=== PATIENT | male | born 1965 | race Caucasian/White ===

== ENCOUNTER → 2018-01-08 | Outpatient (CLI) | payer MEDICARE | END | disposition home or self-care (01) | LOC: MRI 14:38 | DX: M54.40 Lumbago with sciatica, unspecified side (principal); M48.061 Spinal stenosis, lumbar region without neurogenic claudication; M51.36 Other intervertebral disc degeneration, lumbar region; M25.78 Osteophyte, vertebrae | CPT/HCPCS: 72148 ==

== ENCOUNTER → 2018-04-20 | Outpatient (CLI) | payer MEDICARE ==
[~2018-04-20] MED LIST: IOHEXOL 180 MG/ML 10 ML VIAL.; LIDOCAINE 1% PF 2 ML VIAL.; methylPREDNISolone ACETATE 40 MG/ML VIAL.; methylPREDNISolone ACETATE 80 MG/ML VIAL.
== END | disposition home or self-care (01) ==
LOC: PNCL 12:58
DX: M51.16 Intervertebral disc disorders with radiculopathy, lumbar region (principal); M48.062 Spinal stenosis, lumbar region with neurogenic claudication; I10 Essential (primary) hypertension; Z86.14 Personal history of Methicillin resistant Staphylococcus aureus infection; A69.20 Lyme disease, unspecified; M19.90 Unspecified osteoarthritis, unspecified site; F17.210 Nicotine dependence, cigarettes, uncomplicated; Z96.641 Presence of right artificial hip joint; Z98.890 Other specified postprocedural states; Z79.899 Other long term (current) drug therapy; Z82.49 Family history of ischemic heart disease and other diseases of the circulatory system; Z72.89 Other problems related to lifestyle
CPT/HCPCS: 62323; J1030; J1040; Q9965

== ENCOUNTER → 2018-05-04 | Outpatient (CLI) | payer MEDICARE | END | disposition home or self-care (01) | LOC: PNCL 12:55 | DX: M51.16 Intervertebral disc disorders with radiculopathy, lumbar region (principal); M48.062 Spinal stenosis, lumbar region with neurogenic claudication; I10 Essential (primary) hypertension; M19.90 Unspecified osteoarthritis, unspecified site; F17.210 Nicotine dependence, cigarettes, uncomplicated; Z79.899 Other long term (current) drug therapy; Z79.2 Long term (current) use of antibiotics; Z86.14 Personal history of Methicillin resistant Staphylococcus aureus infection; Z96.641 Presence of right artificial hip joint; Z98.890 Other specified postprocedural states; Z82.49 Family history of ischemic heart disease and other diseases of the circulatory system | CPT/HCPCS: 62323; J1030; J1040; Q9965 ==

== ENCOUNTER → 2018-05-18 | Outpatient (CLI) | payer MEDICARE | END | disposition home or self-care (01) | LOC: PNCL 12:49 | DX: M51.16 Intervertebral disc disorders with radiculopathy, lumbar region (principal); M48.062 Spinal stenosis, lumbar region with neurogenic claudication | CPT/HCPCS: 62323; J1030; J1040; Q9965 ==

== ENCOUNTER → 2018-07-19 | Outpatient (CLI) | payer MEDICARE ==
[2016-07-28 21:05] VITALS: BP 161/98
[~2018-07-19] MED LIST changes: +ALPR0.5T6 PO; +AMLO5TAB7 PO; +CEPH-264 PO; +CHOL100013 PO; +GENTAMYCIN NAS; +HYDR-2762 PO; +HYDR-971 PO; -IOHEXOL 180 MG/ML 10 ML VIAL.; -LIDOCAINE 1% PF 2 ML VIAL.; +MELO15TA23 PO; +METO-239 PO; +TIZA4TAB PO; +VALA1000 PO; +[UNRECOGNIZED DRUG - OTHER] NAS; -methylPREDNISolone ACETATE 40 MG/ML VIAL.; -methylPREDNISolone ACETATE 80 MG/ML VIAL.
[2018-07-19 16:14] LABS: BASO % 1 % (0-3); EOS # 0.1 x10^3/uL (0.0-0.7); EOS % 1 % (0-3); HEMATOCRIT 47.6 % (39.0-53.0); HEMOGLOBIN 16.4 g/dL (13.0-17.5); LYMPH # 1.6 x10^3/uL (1.0-4.8); LYMPH % 18 % (24-48); MEAN CORPUSCULAR HEMOGLOBIN 30 pg (25-35); MEAN CORPUSCULAR HGB CONC 34 g/dL (31-37); MEAN CORPUSCULAR VOLUME 88 fL (79-100); MONO # 0.8 x10^3/uL (0.0-1.1); MONO % 9 % (0-9); NEUT # 6.4 x10^3uL (1.8-7.7); NEUT % 72 % (31-73); PLATELET COUNT 267 x10^3/uL (140-400); RED CELL DISTRIBUTION WIDTH 15.4 % (11.5-14.5); WHITE BLOOD COUNT 8.9 x10^3/uL (4.0-11.0)
--- NOTE | 2018-07-19 16:16 | EKG ---
[facility] [address] [place] [address] Test Date: 2018-07-19 Test Time: 16:08:42 Pat Name: BRADEN OBANDO Department: Room: Gender: M Pbx Technician: : 1965 Requested By: PRATIK WHEELER Order Number: [id number] Reading MD: Everton Vaughn Measurements Intervals [place] Rate: 91 P: 31 DE: 158 QRS: 19 QRSD: 96 T: 26 QT: 344 QTc: 425 Interpretive Statements SINUS RHYTHM INCOMPLETE RIGHT BUNDLE BRANCH BLOCK Electronically Signed On 07-20-2018 16:28:27 CDT by Everton Vaughn
[2018-07-19 16:36] LABS: ALBUMIN 3.6 g/dL (3.4-5.0); CALCIUM 9.3 mg/dL (8.5-10.1); CREATININE 1.3 mg/dL (0.7-1.3); POTASSIUM 4.6 mmol/L (3.5-5.1); TOTAL BILIRUBIN 0.7 mg/dL (0.2-1.0); TOTAL PROTEIN 7.2 g/dL (6.4-8.2)
== END | disposition home or self-care (01) ==
LOC: SURGPAT 13:41
PROVIDERS: ATTEND Neurological Surgery
DX: Z01.818 Encounter for other preprocedural examination (principal); I10 Essential (primary) hypertension; I45.19 Other right bundle-branch block; Z79.2 Long term (current) use of antibiotics; Z96.641 Presence of right artificial hip joint; Z86.14 Personal history of Methicillin resistant Staphylococcus aureus infection; Z82.49 Family history of ischemic heart disease and other diseases of the circulatory system
CPT/HCPCS: 36415; 80053; 85025; 87641; 93005

== ENCOUNTER → 2018-07-29 | Day surgery (SDC) | payer MEDICARE ==
--- NOTE | 2018-07-28 18:21 | PREOP HP ---
DATE OF SERVICE: 07/29/2018 HISTORY OF PRESENT ILLNESS: The patient is a pleasant 53-year-old who I last saw in 02/2018. He is having difficulty with low back pain and right posterior thigh and leg pain. He also notices some right anterior thigh numbness. He feels as though there is weakness in his right leg that has been present for years. Over the last year, his lower back and right leg symptoms have worsened considerably. He rates his pain as an 8/10. Walking any distance is associated with significant pain. Taking a bath can be helpful for him. He has been using ibuprofen. He went through physical therapy without significant benefit. I saw him last and recommended epidural steroid injections. He did have 3, which he said were not lasting any benefit. PAST MEDICAL HISTORY: Arthritis, hypertension, MRSA, trauma and Lyme disease. PAST SURGICAL HISTORY: Shoulder surgery in 2013 femur repair in 1999. FAMILY HISTORY: Cancer, seizures and hypertension. SOCIAL HISTORY: Retired. . Smokes less than a half a pack per day and has for 20 years. Drinks alcohol 1-2 times per year. ALLERGIES: No known drug allergies. CURRENT MEDICATIONS: Ibuprofen, metoprolol, meloxicam, alprazolam. REVIEW OF SYSTEMS: A 12-point review of systems was obtained and is noncontributory except for that mentioned above. PHYSICAL EXAMINATION: NEUROSURGERY EXAMINATION: GENERAL APPEARANCE: Alert, pleasant, no acute distress. HEAD: Normocephalic and atraumatic. SKIN: Warm and dry. MUSCULOSKELETAL: Lumbar paraspinal muscle bulk is normal, restricted range of motion of lumbar spine, uury-[id number] tenderness of lower lumbar spine with palpation, normal range of motion of the lower extremities bilaterally. EXTREMITIES: No clubbing, cyanosis or edema. NEUROLOGIC: Alert and oriented x 3, normal recent and remote memory, strength 5/5 in bilateral lower extremities, sensory was intact to light touch in the lower extremities bilaterally, reflexes were trace and symmetric in bilateral lower extremities, negative straight leg raising bilaterally, normal gait. IMAGING: Reviewed. I reviewed a lumbar MRI scan from 01/2018. On that study, there is moderate spinal stenosis present at L3-L4 with moderately severe lateral recess and neural foraminal compromise. At L4-L5, there is moderate degenerative facet disease with lateral recess narrowing, which is more significant on the right side than on the left. ASSESSMENT: 1. Spinal stenosis, lumbar region with neurogenic claudication. 2. Radiculopathy, lumbar region. The patient has difficulty with lumbar stenosis at L3-L4 and right-sided lateral recess narrowing at L4-L5. My recommendation is that he undergo a right direct laminectomy at L3-L4 along with a right-sided hemilaminotomy and microdecompression L4-L5. I discussed this with him in detail including the technique, risks, and expected postoperative course. He understands. He would like to go ahead. We will make the arrangements. PRATIK WHEELER MD DR: VANIA/chito JOB#: [id number] / [id number]
[~2018-07-29] VITALS: Ht 175.3 cm; Wt 77.6 kg
[~2018-07-29] MED LIST changes: +BACITRACIN 50,000 UNIT in IV NORMAL SALINE 1000ML BAG 1,000 ML IRR ONE; +BUPIVAC MPF-EPI 0.5%-1:200000 30 ML VIAL. INJ ONE; +DESFLURANE > 120 MINUTES IH ONE; +DOCU-109 PO; +GELATIN SPONGE SIZE 100. ONE; +GLYCOPYRROLATE 1 MG/5 ML VIAL. ONE; +HYDROcodone/APAP 7.5/325MG 1 TAB TABLET PO PRN; +HYDROmorphone 2 MG/ML VIAL IV PRN; +IV RINGERS,LACTATED 1000ML 1,000 ML IV SCH; +KETAMINE HCL 50 MG/5 ML SYRINGE ONE; +KETOROLAC 60 MG/2 ML INJ FOR OR. ONE; +LIDOCAINE 1% PF 2 ML VIAL. ID PRN; +METH-38 PO; +MIDAZOLAM HCL/PF 2 MG/2 ML VIAL. ONE; +MORPHINE SULFATE 2 MG/ML VIAL. IV PRN; +NEOSTIGMINE METHYLSULFATE 5 MG/5 ML SYRINGE. ONE; +ONDANSETRON PF 4 MG/2 ML VIAL. IV PRN; +ONDANSETRON PF 4 MG/2 ML VIAL. ONE; +PHENYLEPHRINE 10 MG/ML VIAL. ONE; +PROCHLORPERAZINE 10 MG/2 ML VIAL. IV PRN; +PROPOFOL 20 ML IV ONE; +PROPOFOL 50 ML IV ONE; +REMIFENTANIL 2 MG VIAL. IV ONE; +ROCURONIUM 50 MG/5 ML VIAL. ONE; +THROMBIN TOPICAL 20,000 UNIT SPRAY.SYRN KIT TP ONE; +fentaNYL PF VIAL 100 MCG/2 ML VIAL IV PRN; +fentaNYL PF VIAL 100 MCG/2 ML VIAL ONE
--- NOTE | 2018-07-29 14:23 | DISCH ---
DISCHARGE INSTRUCTIONS Condition on Discharge Condition on Discharge: Stable Activity After Discharge Activity Instructions for Disc: Activity as tolerated, Avoid exertion Other activity instructions: no driving for a week Bathing Instructions: Shower-keep dressing dry Lifting Instructions after Dis: No heavy lifting, No pulling or pushing, Do not lift >10 pounds Diet after Discharge Additional Diet Restrictions: resume home diet Wound Incision Care Wound/Incision Care: Ice to area for comfort Other wound/incision instructi: may remove dressing in 48 hrs if dry then may shower, no soaking Contacting the after DC Call your doctor for: Concerns you may have Follow-Up Follow up with: Dr. Wheeler's nurse in 2 weeks [phone] PRATIK WHEELER MD Jul 29, 2018 14:23
[2018-07-29 15:45] VITALS: BP 118/85
--- NOTE | 2018-07-29 17:17 | OP ---
DATE OF SURGERY: 07/29/2018 PREOPERATIVE DIAGNOSES: 1. Lumbar spinal stenosis, L3-L4. 2. Lateral recess stenosis L4-L5, right. OPERATION PERFORMED: 1. Right direct laminectomy L3-L4. 2. Hemilaminotomy with microdecompression of dura and nerve root, right L4-L5. The operation was done with EMG monitoring, fluoroscopy, microscopic dissection. SURGEON: Tunde Wheeler M.D. EXIT BOOTH AGENT: Ginette Whitlock, assisted with the surgery. She assisted with the exposure, the 2-level microdecompression as well as closure. OPERATIVE INDICATIONS: The patient is a very pleasant 53-year-old man who developed intractable back and predominantly right leg pain. Epidural steroids had been done recently, which were of no significant benefit and he had above-mentioned findings on imaging studies. I recommended lumbar microsurgery. I spoke about the surgery and the risks. He understood and wished to go ahead. DESCRIPTION OF PROCEDURE: Following general endotracheal anesthesia, the patient was positioned prone on the Erasto table. His lumbar region was prepped and draped in standard fashion. RICH hose and AV impulse boots were applied for DVT prophylaxis. The microscope was draped. Fluoroscopy was draped and brought in the field. Monitoring was established. Ancef 2 grams was given less than 1 hour prior to initiation of the surgery. Using fluoroscopic guidance, an incision was made directly over the midline extending from L3-L5. I dissected down subcutaneous tissue, reflected the paraspinal muscles, placed a [place] micro disc retractor, brought in the microscope and using microscopic technique from this point forward, I burred down a generous hemilaminotomy at L3-L4. I tilted the patient away from me and I drilled across the midline with a high-speed air drill and trimmed away the very thickened from the midline and then worked this laterally and then performed a very generous partial foraminotomy. I also worked superiorly and fully removed the ligamentum flavum at L3-L4 from the midline to the right side and decompressed both the L4 and to a lesser extent the L3 root. I did explore carefully the neural foramen, which was opened at this point following my decompression. The foraminotomy was extensive and I could visualize the L4 root, which was not under any pressure following the decompression. I then moved down to L4-L5 in a similar fashion, drilled a generous hemilaminotomy, trimmed away thickened ligamentum flavum. At this level, there was a thickened ligament directly over the L4 root and compressing it down on hard disc bulging and I trimmed away the ligament and performed a generous partial foraminotomy and fully decompressed the root. Working more medially, I assured myself that the region was very well decompressed. I trimmed some of the hard disc material away as well to fully decompress the region. Following this, I irrigated copiously. I did use small amounts of bone wax as well as bipolar cautery for hemostasis. I had an excellent decompression of both L3-L4 and L4-L5. I irrigated copiously. I removed the retractor and obtained hemostasis in the muscle and then, I closed the wound in layers with absorbable suture and the skin was closed with 4-0 subcuticular stitch. The operation went very well and the patient was taken uneventfully to recovery room in excellent condition. I was quite pleased with the surgery. TUNDE WHEELER MD DR: VANIA/chito JOB#: [id number] / [id number] ADRI
--- NOTE | 2018-08-02 15:09 | PATHOLOGY ---
[facility] Accession Number: [id number] . 01 Material submitted: . LUMBAR DECOMPRESSION . 01 Clinician provided ICD-10: M48.062 . 01 Clinical history: . Lumbar stenosis with neurogenic claudication . 02 Diagnosis: Segments of fibrocartilaginous, fibroadipose, and skeletal muscle tissue and bone, lumbar decompression: - Degenerative changes of fibrocartilaginous tissue. . (JPM:mm; 08/02/18) [facility]/08/02/2018 . 02 Comment: There is no evidence of an acute inflammatory process or malignancy. . (JPM:mml; 08/02/18) . 02 Electronically signed: . Ruddy Fam MD, Pathologist NPI- [id number] . 01 Gross description: . Received in formalin labeled "Gio Macario, lumbar decompression" and consists of several ragged, firm, kennedy-white fragments of probable fibrocartilaginous tissue admixed with irregularly-shaped osseous tissue fragments (2.5 x 2.0 x 0.9 cm in aggregate). Orchid Hand sections are submitted as A1 following decalcification. (KELL; 07/30/2018) JBR/JBR . 02 Pathologist provided ICD-10: M51.36 . 02 CPT . 354275, [id number] Specimen Comment: A courtesy copy of this report has been sent to Specimen Comment: [phone], . Specimen Comment: Report sent to and Performed at: [address] [facility], [place], [place] [id number] MD Rikki Mazariegos MD Phone: [phone] Performed at: 02 [facility] [address] [place], [place] [id number] MD Ruddy Fam MD Phone: [phone]
== END | disposition home or self-care (01) ==
LOC: SURG 08:38
PROVIDERS: ATTEND Neurological Surgery
DX: M48.062 Spinal stenosis, lumbar region with neurogenic claudication (principal); M51.16 Intervertebral disc disorders with radiculopathy, lumbar region; I10 Essential (primary) hypertension; M19.90 Unspecified osteoarthritis, unspecified site; Z86.14 Personal history of Methicillin resistant Staphylococcus aureus infection; A69.20 Lyme disease, unspecified; Z98.890 Other specified postprocedural states; Z82.49 Family history of ischemic heart disease and other diseases of the circulatory system; Z82.0 Family history of epilepsy and other diseases of the nervous system; F17.210 Nicotine dependence, cigarettes, uncomplicated; Z72.89 Other problems related to lifestyle; Z79.899 Other long term (current) drug therapy
CPT/HCPCS: 63030; 63035; 88304; 88311; 97161; A7015; G8978; G8979; G8980; J0690; J1885; J2250; J2405; J2704; J2710; J3010; J3490; J7030; 76000

== ENCOUNTER 2018-09-30 12:07 | Emergency (ER) | payer MEDICARE ==
[~2018-09-30] VITALS: Ht 175.3 cm; Wt 74.8 kg
[~2018-09-30 12:07] MED LIST changes: -BACITRACIN 50,000 UNIT in IV NORMAL SALINE 1000ML BAG 1,000 ML IRR ONE; -BUPIVAC MPF-EPI 0.5%-1:200000 30 ML VIAL. INJ ONE; -DESFLURANE > 120 MINUTES IH ONE; -GELATIN SPONGE SIZE 100. ONE; -GLYCOPYRROLATE 1 MG/5 ML VIAL. ONE; -HYDR-2762 PO; +HYDR-2765 PO; +HYDR-3164 PO; -HYDR-971 PO; -HYDROcodone/APAP 7.5/325MG 1 TAB TABLET PO PRN; -HYDROmorphone 2 MG/ML VIAL IV PRN; -IV RINGERS,LACTATED 1000ML 1,000 ML IV SCH; -KETAMINE HCL 50 MG/5 ML SYRINGE ONE; -KETOROLAC 60 MG/2 ML INJ FOR OR. ONE; -LIDOCAINE 1% PF 2 ML VIAL. ID PRN; -MIDAZOLAM HCL/PF 2 MG/2 ML VIAL. ONE; -MORPHINE SULFATE 2 MG/ML VIAL. IV PRN; -NEOSTIGMINE METHYLSULFATE 5 MG/5 ML SYRINGE. ONE; -ONDANSETRON PF 4 MG/2 ML VIAL. IV PRN; -ONDANSETRON PF 4 MG/2 ML VIAL. ONE; -PHENYLEPHRINE 10 MG/ML VIAL. ONE; -PROCHLORPERAZINE 10 MG/2 ML VIAL. IV PRN; -PROPOFOL 20 ML IV ONE; -PROPOFOL 50 ML IV ONE; -REMIFENTANIL 2 MG VIAL. IV ONE; -ROCURONIUM 50 MG/5 ML VIAL. ONE; -THROMBIN TOPICAL 20,000 UNIT SPRAY.SYRN KIT TP ONE; -fentaNYL PF VIAL 100 MCG/2 ML VIAL IV PRN; -fentaNYL PF VIAL 100 MCG/2 ML VIAL ONE
[2018-09-30 12:16] VITALS: BP 188/120
[2018-09-30] MEDS ORDERED: OXYC1TAB15 PO (12:22)
[2018-09-30] MEDS ORDERED: SILV20CR14 TP (12:22)
--- NOTE | 2018-09-30 12:23 | PHYS DOC ---
Past Medical History Past Medical History: Depression Additional Past Medical Histor: Lyme disease Past Surgical History: Hip Replacement, Other Additional Past Surgical Histo: R leg, L shoulder, Back Smoking: Cigarettes Alcohol Use: Occasionally Drug Use: None Adult General Chief Complaint Chief Complaint: BURN/SMOKE INHALATION HPI HPI Patient is a 53-year-old male who presents to the emergency department for evaluation. He was wearing a mesh top shoe, and went to take the turkey out of the oven, when the aluminum harper began to bend, causing some of the gravy to schedule out of the harper, and landed on the dorsal aspect of his right foot. The patient presents with mostly first-degree perez over the dorsal aspect of his distal right foot, with some areas of second-degree perez, partial thickness, on the dorsal aspect of the second and fifth toe. He did immerse his foot in cold water after this happened. This happened about 45 minutes prior to arrival. He is uncertain of his last tetanus. He did just complete a course of hydrocodone for back surgery, but has been out for a few weeks. Palpation of the affected area seems to worsen his pain. There are no alleviating factors to his symptoms. Review of Systems Review of Systems Constitutional: Denies fever or chills [] Eyes: Denies change in visual acuity, redness, or eye pain [] HENT: Denies nasal congestion or sore throat [] Musculoskeletal: Denies back pain or joint pain [] Integument: Denies rash or skin lesions [] Neurologic: Denies headache, focal weakness or sensory changes [] Allergies Allergies Allergies Coded Allergies Type Severity Reaction Last Updated Verified No Known Drug Allergies 07/29/18 No Physical Exam Physical Exam PHYSICAL EXAM: HEENT: Atruamatic NECK: Supple, normal ROM, non-tender. CARDIAC: Regular Rate and Rhythm LUNGS: Clear Bilaterally EXTREMITIES: On the dorsal aspect of the right foot, there is an area of first degree burn over the distal half of the dorsum of the foot. A strong dorsalis pedis pulses present. There are isolated areas of second-degree burn, partial- thickness, each about a clair in size, on the dorsal aspect of the second and fifth toes. There are no other perez noted. The ankle and remainder of the right and lower extremity are nontender. Total BSA involvement is less than 1%. EKG EKG [] Radiology/Procedures Radiology/Procedures [] Course & Med Decision Making Course & Med Decision Making I discussed home care with the patient, pain control, need for PCP follow-up, and return precautions. Dragon Disclaimer Dragon Disclaimer This electronic medical record was generated, in whole or in part, using a voice recognition dictation system. Departure Departure Impression: Primary Impression: Burn Disposition: HOME, SELF-CARE Condition: STABLE Referrals: MELVIN SLATER MD (PCP) Patient Instructions: Burn Care Scripts Oxycodone/Apap 5-325 (PERCOCET 5-325 MG TABLET) 1 Each Tablet 1 TAB PO Q6HRS PRN for PAIN, #20 TAB Prov: ESTEBAN TURNER MD 09/30/18 Silver Sulfadiazine (SILVADENE) 20 Gm Cream..g. 1 RADHA TP TID, #50 GM Prov: ESTEBAN TURNER MD 09/30/18 ESTEBAN TURNER MD Sep 30, 2018 12:23
[2018-09-30] MEDS ORDERED: DIPHTH,PERTUSS(ACELL),TET TOX 0.5 ML DISP.SYRIN. VAX IM ONE (12:30)
[2018-09-30] MEDS ORDERED: silver sulfADIAZINE 1% CREAM 25GM TUBE. TP ONE (12:30)
[2018-09-30] MEDS ORDERED: oxyCODONE/APAP 5/325 1 TAB TABLET PO ONE (12:30)
== END 2018-09-30 12:44 | disposition home or self-care (01) ==
LOC: ER 12:07
DX: T25.231A Burn of second degree of right toe(s) (nail), initial encounter (principal); T25.121A Burn of first degree of right foot, initial encounter; F17.210 Nicotine dependence, cigarettes, uncomplicated; X12.XXXA Contact with other hot fluids, initial encounter; Y93.G9 Activity, other involving cooking and grilling; Y92.89 Other specified places as the place of occurrence of the external cause; Y99.8 Other external cause status
CPT/HCPCS: 90471; 90715; 99283-25

== ENCOUNTER 2020-01-13 22:55 | Emergency (ER) | payer MEDICARE ==
[~2020-01-13] VITALS: Ht 172.7 cm; Wt 75.0 kg
[~2020-01-13 22:55] MED LIST changes: +AMLO5TAB10 PO; -AMLO5TAB7 PO; +OXYC1TAB15 PO; +SILV20CR14 TP; -TIZA4TAB PO; +TIZA4TAB2 PO; -VALA1000 PO; +VALA10008 PO
[2020-01-13 23:15] VITALS: BP 170/79
[2020-01-13] MEDS ORDERED: LIDOCAINE 1%/EPI 1:100,000 20 ML VIAL. SQ ONE (23:30)
[2020-01-14] MEDS ORDERED: HYDROcodone/APAP 7.5/325MG 1 TAB TABLET PO ONE
[2020-01-14] MEDS ORDERED: SULF1TAB24 PO (00:02)
[2020-01-14] MEDS ORDERED: HYDR-2761 PO (00:02)
[2020-01-14] MEDS ORDERED: CEPH500C PO (00:02)
--- NOTE | 2020-01-14 00:02 | PHYS DOC ---
Past Medical History Past Medical History: Depression, Hypertension Additional Past Medical Histor: Lyme disease Past Surgical History: Hip Replacement, Other Additional Past Surgical Histo: R leg, L shoulder, Back Smoking Status: Current Every Day Smoker Alcohol Use: Occasionally Drug Use: Marijuana Adult General Chief Complaint Chief Complaint: SKIN PROBLEM HPI HPI Patient is a 54 year old male, accompanied by his roommate, who presents to the emergency department with complaints of a swollen, red, warm, tender area to his left anterior thigh that began 3 days ago. Patient states when he first noticed the area he pulled an ingrown hair out of it. He denies any numbness, tingling, or weakness of the affected extremity. He denies any fever, bleeding, or drainage from the site. He currently rates the pain an 8 out of 10 on the pain scale, the pain increases of pressure is applied to the area, he denies any alleviating factors. Patient states that his last tetanus shot was 4 years ago. Review of Systems Review of Systems Complete ROS is negative unless otherwise noted in HPI. Current Medications Current Medications Current Medications Medications (Trade) Dose Ordered Sig/Lazaro Start Time Stop Time Status Last Admin Dose Admin Lidocaine/ Epinephrine (LIDOCAINE 1%-EPI 1:100,000 Multi-Dose) 20 ml 1X ONCE 01/13/20 23:30 01/13/20 23:31 DC 01/13/20 23:29 20 ML Allergies Allergies Allergies Coded Allergies Type Severity Reaction Last Updated Verified No Known Drug Allergies 07/29/18 No Physical Exam Physical Exam See Above Constitutional: Well developed, well nourished, no acute distress, non-toxic appearance. [] HENT: Normocephalic, atraumatic, bilateral external ears normal, nose normal. [] Eyes: PERRLA, EOMI, conjunctiva normal, no discharge. [] Neck: Normal range of motion, no stridor. [] Cardiovascular:Heart rate regular rhythm Lungs & Thorax: Respirations even and unlabored, no retractions, no respiratory distress Skin: Warm, dry; large 10 cm diameter area of erythema noted to anterior left thigh with 3 cm central raised, fluctuant area, no active bleeding or drainage, concerning for skin abscess with surrounding cellulitis. [] Extremities: No cyanosis, no clubbing, ROM intact, no edema. [] Neurologic: Alert and oriented X 3, no focal deficits noted. [] Psychologic: Affect normal, judgement normal, mood normal. [] Current Patient Data Vital Signs Vital Signs Date Time Temp Pulse Resp B/P (MAP) Pulse Ox O2 Delivery O2 Flow Rate FiO2 01/13/20 23:15 98.4 90 20 170/79 (109) 96 Room Air 98.4 EKG EKG [] Radiology/Procedures Radiology/Procedures Indication: abscess Procedure: The patient was positioned appropriately. Local anesthesia was 1% lidocaine with epi. An incision was then made over the apex of the lesion and moderate amount of purulent drainage was expressed. The drainage cavity was explored with Kellys and packed with sterile iodoform gauze. A marker was used to draw an outline around the area of erythema for the patient. The patients tetanus status was up-to-date. The patient tolerated the procedure well, minimal blood loss. Complications: none. Course & Med Decision Making Course & Med Decision Making Pertinent Labs and Imaging studies reviewed. (See chart for details) [] Dragon Disclaimer Dragon Disclaimer This electronic medical record was generated, in whole or in part, using a voice recognition dictation system. Departure Departure Impression: Primary Impression: Cutaneous abscess of left lower extremity Additional Impression: Cellulitis of left thigh Disposition: HOME, SELF-CARE Condition: STABLE Referrals: MELVIN SLATER MD (PCP) Patient Instructions: Abscess, Care After, Cellulitis, [id number]-[id number]-Ykym Additional Instructions: Fill the prescription(s) and use as directed. . Leave the Dressing that was placed in the ER in place for the next 24 hours, then change the dressing twice daily and as needed. You may apply warm, moist packs to the area to help decrease discomfort. Follow up with your primary care doctor or return to the ER in 48 hours to have wound rechecked and packing removed. Return to the ER sooner if your symptoms worsen, the area of redness increases, or you develop a fever. Scripts Hydrocodone Bit/Acetaminophen (HYDROCODONE-APAP 5-325 ) 1 Tab Tablet 1 TAB PO PRN Q6HRS PRN for PAIN for 3 Days, #10 TAB 0 Refills Prov: ROB CAPELLAN MULTIPLE PUNCH PRESS OPERATOR 01/14/20 Cephalexin (CEPHALEXIN) 500 Mg Capsule 1 CAP PO QID for 10 Days, #40 CAP 0 Refills Prov: ROB CAPELLAN MULTIPLE PUNCH PRESS OPERATOR 01/14/20 Sulfamethoxazole/Trimethoprim (BACTRIM DS TABLET) 1 Each Tablet 1 TAB PO BID for 10 Days, #20 TAB 0 Refills Prov: ROB CAPELLAN APRN 01/14/20 Problem Qualifiers ROB CAPELLAN APRN Jan 14, 2020 00:02
== END 2020-01-14 00:24 | disposition home or self-care (01) ==
LOC: ER 22:55
DX: L03.116 Cellulitis of left lower limb (principal); I10 Essential (primary) hypertension; F17.200 Nicotine dependence, unspecified, uncomplicated
CPT/HCPCS: 10060; 99283; J3490

== ENCOUNTER 2020-01-15 22:01 | Emergency (ER) | payer MEDICARE ==
[~2020-01-15] VITALS: Ht 175.3 cm; Wt 75.0 kg
[~2020-01-15 22:01] MED LIST changes: +CEPH500C PO; +HYDR-2761 PO; +SULF1TAB24 PO
[2020-01-15 22:30] VITALS: BP 126/87
--- NOTE | 2020-01-15 23:13 | PHYS DOC ---
Past Medical History Past Medical History: Depression, Hypertension Additional Past Medical Histor: Lyme disease Past Surgical History: Hip Replacement, Other Additional Past Surgical Histo: R leg, L shoulder, Back Smoking Status: Current Every Day Smoker Alcohol Use: Occasionally Drug Use: Marijuana Adult General Chief Complaint Chief Complaint: ABSCESS HPI HPI Patient is a 54 year old male with history of hypertension, depression, who presents to the ED today for wound check for an abscess on the left ventral thig h that was drained 2 days ago. Patient denies any issues with the wound healing. Review of Systems Review of Systems Constitutional: Denies fever or chills [] Musculoskeletal: Denies back pain or joint pain [] Integument: Wound check Neurologic: Denies headache, focal weakness or sensory changes [] All other systems were reviewed and found to be within normal limits, except as documented in this note. Allergies Allergies Allergies Coded Allergies Type Severity Reaction Last Updated Verified No Known Drug Allergies 07/29/18 No Physical Exam Physical Exam Constitutional: Well developed, well nourished, no acute distress, non-toxic appearance. [] Skin: Left ventral thigh with an open wound approximately 2 x 2 cm with surrounding cellulitis. The wound is draining yellow purulent material. Packing is soaked. Back: No tenderness, no CVA tenderness. [] Extremities: No tenderness, no cyanosis, no clubbing, ROM intact, no edema. [] Neurologic: Alert and oriented X 3, normal motor function, normal sensory function, no focal deficits noted. [] Psychologic: Affect normal, judgement normal, mood normal. [] Current Patient Data Vital Signs Vital Signs Date Time Temp Pulse Resp B/P (MAP) Pulse Ox O2 Delivery O2 Flow Rate FiO2 01/15/20 22:30 98.5 103 16 126/87 (100) 96 Room Air 98.5 EKG EKG [] Radiology/Procedures Radiology/Procedures [] Course & Med Decision Making Course & Med Decision Making Pertinent Labs and Imaging studies reviewed. (See chart for details) This is a 54-year-old male patient presenting to the ED today for wound check for an abscess that was drained 2 days ago and packed. Packing was removed by me, area was cleaned with Betadine and saline and repacked. Patient was trained on how to change his own dressing including packing and supplies were provided. He should continue with his antibiotics and follow-up with his own primary care doctor. Sharmaine Marreroimer Sharmaine Disclaimer This electronic medical record was generated, in whole or in part, using a voice recognition dictation system. Departure Departure Impression: Primary Impression: Cutaneous abscess of left lower extremity Disposition: HOME, SELF-CARE Condition: STABLE Referrals: MELVIN SLATER MD (PCP) follow up with your doctor in 1-2 weeks Patient Instructions: Abscess, Care After Additional Instructions: Keep your wound clean and dry. Change the dressing once a day. Follow-up with your doctor in 1 to 2 weeks. Continue taking the antibiotics until completed. AMANDA FOX BUFFET ATTENDANT Jan 15, 2020 23:13
== END 2020-01-15 23:15 | disposition home or self-care (01) ==
LOC: ER 22:01
DX: L02.416 Cutaneous abscess of left lower limb (principal); I10 Essential (primary) hypertension; F17.200 Nicotine dependence, unspecified, uncomplicated
CPT/HCPCS: 99282